=== PATIENT | female | born 1970 | race African-American/Black ===

== ENCOUNTER 2018-05-19 22:57 | Emergency (ER) | payer OTHER ==
[~2018-05-19] VITALS: Ht 170.2 cm; Wt 135.6 kg
[~2018-05-19 22:57] MED LIST: AMBIEN10 MG; BENADRYL50 MG; CATAFLAM50 MG; CELEXA40 MG; KLONOPIN2 MG/TAB; NORFLEX100 MG; RISPERDAL2 MG; ULTRACET; WELLBUTRIN75 MG
[2018-05-19] MEDS ORDERED: NEURONTIN800 MG (23:09)
[2018-05-19] MEDS ORDERED: EFFEXOR XR150 MG (23:10)
[2018-05-19] MEDS ORDERED: REMERON15 M1 (23:10)
[2018-05-19] MEDS ORDERED: NORVASC10 MG (23:10)
[2018-05-20] MEDS ORDERED: MEDROLPACK PO (02:15)
[2018-05-20] MEDS ORDERED: KETO10TA2 PO (02:15)
== END 2018-05-20 02:56 | disposition home or self-care (01) ==
LOC: ER 22:57
DX: M79.7 Fibromyalgia (principal); M79.18 Myalgia, other site